=== PATIENT | male | born 1950 | race Caucasian/White ===

== ENCOUNTER 2017-01-05 22:00 | Inpatient (IN) | payer MEDICARE, OTHER ==
--- NOTE | ~2017-01-05 | DS ---
Discharge Summary [facility] [address] [place]. [address] NAME: CAMPOS SCHAFFER : 48 STATUS : DIS IN PAT#: [id number] AGE: 66 ADM/REG DATE : 01/06/17 MR#: [id number] REPORT SERV DATE: 01/19/17 DICTATED BY: SHANTEL COLE DATE: 01/18/17 REPORT STATUS : Draft TRANSCRIBED BY: MODTiffanie DATE: 01/18/17 Data Collection from hospitalization DISCHARGE DIAGNOSES: 1. Diverticulitis. 2. Hypertension. 3. History of stroke. 4. History of prostate cancer. 5. History of irritable bowel and colitis. 6. Lumbar disk disease. 7. Glaucoma. 8. Asthma. CONSULTATIONS: None. PROCEDURES PERFORMED: CT scan of the abdomen and pelvis with contrast, 01/05/2017. DISCHARGE MEDICATION: 1. ProAir as instructed. 2. Norvasc 5 mg every morning. 3. Augmentin 875 mg twice a day. 4. Azopt ophthalmic suspension one drop twice a day. 5. Zyrtec 10 mg daily. 6. Plavix 75 mg daily. 7. Zetia 10 mg every morning. 8. Centrum tablets one tablet daily. 9. Percocet 5/325 mg one tablet every 4 hours as needed. 10.Paxil 20 mg every morning. 11.Crestor 20 mg daily. 12.Travatan as instructed. CONDITION AT DISCHARGE: Stable. DISPOSITION: The patient was discharged home on a full liquid diet with activities as instructed. He would follow up with me on 02/04/2017. HOSPITAL COURSE: This is a 66-year-old man who presented with the acute onset of abdominal pain that began at approximately 11 o'clock on 01/05/2017, this was associated with nausea and vomiting. The pain extended across the lower abdomen and it was constant in nature. Along with this he also had some chills. He presented to the emergency room and was found to have findings consistent with diverticulitis on a CT scan. He was admitted to the hospital at this time for further evaluation and treatment. Upon admission, he was felt to have acute diverticulitis, we recommended bowel rest, antibiotics, and surgical intervention if he were to get significantly worse. Plavix was going to be held for now in case he were to need surgical intervention. The following day, his pain had decreased. He was afebrile. Abdominal tenderness had decreased. We advanced his diet. On 01/08/2017, his pain continued to decline. He was tolerating oral intake. Discharge Summary [place] [id number] [facility] [place] [id number] NAME: CAMPOS SCHAFFER : 48 STATUS : DIS IN PAT#: [id number] AGE: 66 ADM/REG DATE : 01/06/17 MR#: [id number] REPORT SERV DATE: 01/19/17 DICTATED BY: SHANTEL COLE DATE: 01/18/17 REPORT STATUS : Draft TRANSCRIBED BY: MODL DATE: 01/18/17 His abdomen was soft. Tenderness had decreased. Over the next couple of days, discharge planning was performed. The NG tube was clamped. On 01/10/2017, he was going to go home on oral antibiotics. He was tolerating liquids. IV fluids were stopped. NG tube had been removed. Discharge instructions were given. Due to his improved and stable condition, he was discharged home with the above-stated instructions. Information collected by: Kadie Crump I submit the above information as my discharge summary. TG/SCOTTY Donald Cole M.D. / [id number] CC: Dejah Vickers M.D.
--- NOTE | ~2017-01-05 | HP ---
History And Physical [id number] [place]. [address] NAME: CAMPOS SCHAFFER : 48 STATUS : ADM IN [facility]#: [id number] AGE: 66 ADM/REG DATE : 01/06/17 MR#: [id number] REPORT SERV DATE: 01/06/17 DICTATED BY: SHANTEL COLE DATE: 01/06/17 REPORT STATUS : Draft TRANSCRIBED BY: MODL DATE: 01/06/17 DATE OF ADMISSION: 01/06/2017 CHIEF COMPLAINT: Abdominal pain. HISTORY: Mr. Schaffer is a 66-year-old male, who presented with acute onset abdominal pain starting at approximately 11 o'clock on 01/05/2017, this was associated with nausea and vomiting. The pain extends across the lower abdomen, it is constant in nature. He also along with this had chills and went to the emergency room; was found to have findings consistent with diverticulitis. ALLERGIES: FLAGYL. MEDICAL ILLNESSES: History of stroke and prostate cancers, history of irritable bowel and colitis and his colonoscopy was greater than 5 years ago. He also has lumbar disk disease, glaucoma and asthma as well as hypertension. PAST SURGICAL HISTORY: His previous surgery includes; prostatectomy and anal fistula surgery, eye surgery and carpal tunnel surgery. HOME MEDICATIONS: Albuterol, Norvasc, Azopt, Zyrtec, Plavix, Zetia, Centrum, Paxil, Crestor and Travatan. FAMILY HISTORY: Significant for heart disease, and there is no history of colon cancer. SOCIAL HISTORY: Negative for tobacco or ethanol abuse. REVIEW OF SYSTEMS: Comprehensive review of systems was obtained and is negative except he does have some shortness of breath with his asthma, has a history of stroke, and carpal tunnel problems. He denies endocrine problems. He is on Plavix and other than otherwise mentioned, he has been healthy. PHYSICAL EXAMINATION: VITAL SIGNS: His temperature is 97.9, pulse 52, blood pressure 108/61, respiratory rate 16. GENERAL: He is alert and in no distress. HEENT: He has moist mucous membranes and no scleral icterus. There is no thyromegaly or cervical adenopathy. There is no use of accessory muscles of breathing. CHEST: Clear. HEART: Regular rhythm and rate without murmurs. ABDOMEN: Reveals active bowel sounds and it is soft, though there is some tenderness, greatest in the lower abdomen, mild in the midline in the periumbilical area. No masses or organomegaly or ventral hernias. He has mild diastasis in the mid abdomen. EXTREMITIES: Reveal no cyanosis, clubbing, or edema. LABORATORY DATA: Additional data includes white blood cell count which is 13,000, but History And Physical [facility] [address] [facility] [place]. [address] NAME: CAMPOS SCHAFFER : 48 STATUS : ADM IN PAT#: [id number] AGE: 66 ADM/REG DATE : 01/06/17 MR#: [id number] REPORT SERV DATE: 01/06/17 DICTATED BY: SHANTEL COLE DATE: 01/06/17 REPORT STATUS : Draft TRANSCRIBED BY: SCOTTY DATE: 01/06/17 decreased from his initial white blood cell count when he came in, which had been an 18, hemoglobin is 14.3, albumin is 3.1, creatinine is 0.98. Urinalysis is normal. Independent review of CT scan and the report is consistent with diverticulitis. IMPRESSION: Acute diverticulitis. I have recommended bowel rest, antibiotics and surgical intervention if he gets significantly worse. We will hold his Plavix for now in case he were to need surgical intervention. JIMENEZ/SCOTTY Donald Cole M.D. / [id number] CC: Dejah Vickers M.D.
[2017-01-05 20:52] LABS: BASOPHILS 0.1 %; BASOPHILS ABSOLUTE 0.02 10/3/uL (0.0-0.16); EOSINOPHILS 0.1 %; EOSINOPHILS ABSOLUTE 0.01 10/3/uL (0.0-0.53); ER CBC TAT 0 Hrs 11 Mins; HEMATOCRIT 48.4 % (40.0-51.0); HEMOGLOBIN 17.1 g/dL (13.6-17.8); IMMATURE GRANULOCYTES 0.3 %; IMMATURE GRANULOCYTES ABSOLUTE 0.05 10/3/uL (0.0-0.11); LYMPHOCYTES 6.3 %; LYMPHOCYTES ABSOLUTE 1.14 10/3/uL (0.67-4.30); MANUAL DIFF NO %; MEAN CORPUS HGB CONC 35.3 g/dL (32.0-36.0); MEAN CORPUSCULAR HEMOGLOB 32.5 pg (26.0-34.0); MEAN PLATELET VOLUME 11.8 fL (9.2-13.0); MONOCYTES 6.3 %; MONOCYTES ABSOLUTE 1.14 10/3/uL (0.21-1.20); NEUTROPHILS 86.9 %; NEUTROPHILS ABSOLUTE 15.74 10/3/uL (2.02-8.40); PLATELET COUNT 173 10/3/uL (150-400); RED CELL COUNT 5.26 10/6/uL (4.7-6.1); WHITE BLOOD CELLS 18.1 10/3/uL (4.5-10.5)
[2017-01-05 21:00] LABS: A/G RATIO 1.2 (0.7-1.9); ALBUMIN 4.2 G/DL (3.5-5.0); ALKALINE PHOSPHATASE 60 U/L (45-117); BUN (BLOOD UREA NITROGEN) 16 MG/DL (6-23); CALCIUM, SERUM 9.3 MG/DL (8.5-10.4); CHLORIDE, SERUM 103 MMOL/L (96-112); CO2 (CARBON DIOXIDE) 29 MMOL/L (24-34); CREATININE 1.07 MG/DL (0.70-1.30); GFR AFRICAN AMERICAN 83 ML/MIN (>=60); GFR NON AFRICAN AMERICAN 71 ML/MIN (>=60); GLOBULIN 3.4 G/DL (2.5-4.1); GLUCOSE, SERUM 125 MG/DL (60-99); POTASSIUM, SERUM 3.9 MMOL/L (3.5-5.3); SGOT(AST) 40 U/L (5-40); SGPT(ALT) 45 U/L (5-65); SODIUM, SERUM 137 MMOL/L (135-148); TOTAL BILIRUBIN 1.3 MG/DL (0-1.2); TOTAL PROTEIN 7.6 G/DL (6.0-8.5)
[2017-01-05 21:04] LABS: ASCORBIC ACID (UR NOT ORDER) NEG (NEG); BILIRUBIN, URINE NEGATIVE (NEG); ER URINALYSIS TAT 0 Hrs 12 Mins; KETONE, URINE TRACE MG/DL (NEG); LEUKOCYTE ESTERASE(NOT OR NEG (NEG); NITRITE (URINE) NEG (NEG); WBC (NOT ORDERED) (RFLEX) 2 (0-5)
[~2017-01-05 22:00] MED LIST: ASAB PO; AZOPT OPH; CENTRUM PO; COSOPT OPH; CRESTOR20 MG PO; DONNATA1 PO; FISH-EPA1000 MG PO; GLUCCHONDR PO; LOM PO; NORCO1 TA2 PO; NORV5 PO; PAX20 PO; PLAVIX PO; PROAIR HFA; PROTONIX PO; SLO-NIACIN500 MG PO; T300 PO; Travatan 0.004% Opht; VITAMIN D31000 UNIT PO; ZETIA PO; ZYRTEC ALLGY10 MG PO; [UNRECOGNIZED DRUG - OTHER] PO
[2017-01-06] MEDS ORDERED: *UNABLE3 (02:58)
[2017-01-06 05:17] LABS: BASOPHILS 0.1 %; BASOPHILS ABSOLUTE 0.01 10/3/uL (0.0-0.16); EOSINOPHILS 0.2 %; EOSINOPHILS ABSOLUTE 0.03 10/3/uL (0.0-0.53); HEMOGLOBIN 14.3 g/dL (13.6-17.8); IMMATURE GRANULOCYTES 0.2 %; IMMATURE GRANULOCYTES ABSOLUTE 0.03 10/3/uL (0.0-0.11); LYMPHOCYTES 16.1 %; LYMPHOCYTES ABSOLUTE 2.15 10/3/uL (0.67-4.30); MEAN CORPUSCULAR HEMOGLOB 32.3 pg (26.0-34.0); MEAN CORPUSCULAR VOLUME 92.1 fL (80-100); MEAN PLATELET VOLUME 11.9 fL (9.2-13.0); MONOCYTES 8.3 %; MONOCYTES ABSOLUTE 1.11 10/3/uL (0.21-1.20); NEUTROPHILS 75.1 %; NEUTROPHILS ABSOLUTE 10.03 10/3/uL (2.02-8.40); PLATELET COUNT 160 10/3/uL (150-400); RBC DISTRIBUTION WIDTH 13.1 % (12.0-16.0); RED CELL COUNT 4.43 10/6/uL (4.7-6.1); WHITE BLOOD CELLS 13.4 10/3/uL (4.5-10.5)
[2017-01-06 05:20] LABS: HEMATOCRIT 40.8 % (40.0-51.0); MANUAL DIFF NO %
[2017-01-06 05:34] LABS: BUN (BLOOD UREA NITROGEN) 15 MG/DL (6-23); CALCIUM, SERUM 8.2 MG/DL (8.5-10.4); CHLORIDE, SERUM 108 MMOL/L (96-112); CO2 (CARBON DIOXIDE) 25 MMOL/L (24-34); CREATININE 0.98 MG/DL (0.70-1.30); GFR AFRICAN AMERICAN 92 ML/MIN (>=60); GFR NON AFRICAN AMERICAN 79 ML/MIN (>=60); GLUCOSE, SERUM 112 MG/DL (60-99); POTASSIUM, SERUM 3.9 MMOL/L (3.5-5.3); SGOT(AST) 23 U/L (5-40); SGPT(ALT) 33 U/L (5-65); SODIUM, SERUM 139 MMOL/L (135-148); TOTAL BILIRUBIN 0.9 MG/DL (0-1.2)
[2017-01-06 05:35] LABS: A/G RATIO 1.1 (0.7-1.9); ALBUMIN 3.1 G/DL (3.5-5.0); ALKALINE PHOSPHATASE 45 U/L (45-117); GLOBULIN 2.9 G/DL (2.5-4.1)
[2017-01-08] MEDS ORDERED: PCET PO (09:44)
[2017-01-08] MEDS ORDERED: AUG875 PO (09:50)
[2017-01-09 06:31] LABS: BASOPHILS 0.5 %; BASOPHILS ABSOLUTE 0.03 10/3/uL (0.0-0.16); EOSINOPHILS 4.4 %; EOSINOPHILS ABSOLUTE 0.27 10/3/uL (0.0-0.53); HEMATOCRIT 39.6 % (40.0-51.0); HEMOGLOBIN 13.8 g/dL (13.6-17.8); IMMATURE GRANULOCYTES 0.5 %; IMMATURE GRANULOCYTES ABSOLUTE 0.03 10/3/uL (0.0-0.11); LYMPHOCYTES 25.8 %; MEAN CORPUS HGB CONC 34.8 g/dL (32.0-36.0); MEAN CORPUSCULAR HEMOGLOB 31.9 pg (26.0-34.0); MEAN CORPUSCULAR VOLUME 91.7 fL (80-100); MONOCYTES 8.9 %; MONOCYTES ABSOLUTE 0.55 10/3/uL (0.21-1.20); NEUTROPHILS 59.9 %; NEUTROPHILS ABSOLUTE 3.72 10/3/uL (2.02-8.40); PLATELET COUNT 176 10/3/uL (150-400); RBC DISTRIBUTION WIDTH 12.9 % (12.0-16.0); RED CELL COUNT 4.32 10/6/uL (4.7-6.1)
[2017-01-09 06:32] LABS: MANUAL DIFF NO %; WHITE BLOOD CELLS 6.2 10/3/uL (4.5-10.5)
[2017-01-09 06:40] LABS: CALCIUM, SERUM 8.8 MG/DL (8.5-10.4); CHLORIDE, SERUM 103 MMOL/L (96-112); CO2 (CARBON DIOXIDE) 29 MMOL/L (24-34); CREATININE 0.82 MG/DL (0.70-1.30); GFR AFRICAN AMERICAN 106 ML/MIN (>=60); GFR NON AFRICAN AMERICAN 92 ML/MIN (>=60); POTASSIUM, SERUM 3.7 MMOL/L (3.5-5.3); SODIUM, SERUM 140 MMOL/L (135-148)
[2017-01-09 06:41] LABS: BUN (BLOOD UREA NITROGEN) 6 MG/DL (6-23); GLUCOSE, SERUM 79 MG/DL (60-99)
== END 2017-01-10 16:34 | disposition home or self-care (01) | DRG 392 ==
LOC: ER 22:00 → 5SO 01-06 01:22
PROVIDERS: Colon & Rectal Surgery; Emergency Medicine
DX: K57.32 Diverticulitis of large intestine without perforation or abscess without bleeding (principal); I10 Essential (primary) hypertension; J45.909 Unspecified asthma, uncomplicated; Z85.3 Personal history of malignant neoplasm of breast; Z85.46 Personal history of malignant neoplasm of prostate; Z79.02 Long term (current) use of antithrombotics/antiplatelets; Z79.899 Other long term (current) drug therapy; Z82.49 Family history of ischemic heart disease and other diseases of the circulatory system
CPT/HCPCS: 74000; 74177; 80048; 80053; 81001; 82962; 83690; 85025; 96365; 96375; 99291; A9270-GY; J1170; J1956; J2405; J2543; Q9967